=== PATIENT | female | born 1970 | race Caucasian/White ===

== ENCOUNTER 2016-11-28 19:18 | Emergency (ER) | payer BC ==
[2016-11-28] MEDS ORDERED: HYDROCODONE/APAP 10/325 TABLET PO ONE (19:25)
--- NOTE | 2016-11-28 19:31 | Emergency Department Record ---
History of Present Illness - General Chief Complaint: Fall Injury Stated Complaint: FALL Time Seen by Provider: 11/28/16 19:25 Source: Patient, EMS Mode of Arrival: EMS Limitations: No limitations - History of Present Illness Initial Comments: 46 yo female presents to ED with a CC of left lower extremity pain following a slip and fall this evening down approximately 6 steps. Patient reports injury to the left foot and ankle as the lower extremity "folded up underneath me when I fell". Patient denies injury to the head or neck, denies back, chest, or abdominal pain symptoms. Patient denies pain above the left mid-lower extremity on examination. MD Complaint: Fall Onset/Timin -: Minutes(s) Fall From: Down stairs (#) (6) When Fall Occurred: Just prior to arrival Fall Witnessed: Yes, by family Place Fall Occurred: Home Loss of Consciousness: None Prolonged Down Time?: No Symptoms Prior to Fall: None Location - Extremities: Left: Lower Leg Severity: Moderate Quality: Aching - [place] Coma Scale Eye Response: (4) Open spontaneously Motor Response: (6) Obeys commands Verbal Response: (5) Oriented [place] Total: 15 - Related Data Home Medications Medication Instructions Recorded Confirmed Last Taken Amitriptyline HCl [Amitriptyline 5 mg PO DAILY 08/04/15 11/28/16 10/09/15 HCl] Clonazepam [Clonazepam] 20 mg PO DAILY 08/04/15 11/28/16 10/09/15 Hydroxychloroquine Sulfate 200 mg PO BID 08/04/15 11/28/16 10/09/15 [Plaquenil] Levothyroxine Sodium [Synthroid] 150 mcg PO DAILY 08/04/15 11/28/16 10/09/15 Bupropion HCl [Wellbutrin Xl] 150 mg PO DAILY 11/28/16 11/28/16 Unknown Cyclobenzaprine HCl [Flexeril] 10 mg PO QHS 11/28/16 11/28/16 Unknown Allergies Allergy/AdvReac Type Severity Reaction Status Date / Time loratadine [From Claritin] Allergy Intermediate SWELLING Verified 11/28/16 19:21 OF THE TONGUE meclizine HCl [From Antivert] Allergy Intermediate SWELLING Verified 11/28/16 19 :21 OF THE TONGUE Sulfa (Sulfonamide Allergy Intermediate SWELLING Verified 11/28/16 19:21 Antibiotics) OF THE TONGUE Review of Systems Constitutional: Denies: Chills, Fever, Malaise, Night sweats Eyes: Denies: Eye discharge, Eye pain ENT: Denies: Congestion, Ear pain Respiratory: Denies: Cough, Dyspnea Cardiovascular: Denies: Chest pain, Dyspnea on exertion Endocrine: Denies: Fatigue, Heat or cold intolerance Gastrointestinal: Denies: Abdominal pain, Nausea, Vomiting Genitourinary: Denies: Dysuria, Frequency Musculoskeletal: Reports: Arthralgia. Denies: Back pain, Gout, Joint swelling Skin: Denies: Bruising, Change in color Neurological: Denies: Abnormal gait, Confusion, Headache, Seizure Psychiatric: Denies: Anxiety Hematological/Lymphatic: Denies: Anemia, Blood Clots Past Medical History - SOCIAL HISTORY Smoking Status: Never smoker - RESPIRATORY Hx Respiratory Disorders: No - CARDIOVASCULAR Hx Cardio Disorders: No - NEURO Hx Neuro Disorders: No Comment:: lupus - GI Hx GI Disorders: No - Hx Genitourinary Disorders: No - ENDOCRINE Hx Endocrine Disorders: Yes Hx Thyroid Disease: Yes (hypothyroidism) - MUSCULOSKELETAL Hx Musculoskeletal Disorders: No - PSYCH Hx Psych Problems: No - HEMATOLOGY/ONCOLOGY Hx Hematology/Oncology Disorders: Yes Hx Anemia: Yes (iron deficient) Family Medical History Hx Dementia: Mother Hx Heart Disease: Father Physical Exam - General General Appearance: Alert, Oriented x3, Cooperative, Moderate distress Limitations: No limitations - Head Head exam: Atraumatic, Normocephalic, Normal inspection Head exam detail: negative: Abrasion, Contusion, Mccoy's sign, General tenderness, Hematoma, Laceration - Eye Eye exam: Normal appearance. negative: Conjunctival injection, Periorbital swelling, Periorbital tenderness, Scleral icterus - ENT Ear exam: negative: Auricular hematoma, Auricular trauma Nasal Exam: negative: Active bleeding, Discharge, Dried blood, Foreign body Mouth exam: negative: Drooling, Laceration, Muffled voice, Tongue elevation - Neck Neck exam: Normal inspection. negative: Meningismus, Tenderness - Respiratory Respiratory exam: Normal lung sounds bilaterally. negative: Rales, Respiratory distress, Rhonchi, Stridor - Cardiovascular Cardiovascular Exam: Regular rate, Normal rhythm, Normal heart sounds - GI/Abdominal GI/Abdominal exam: Soft. negative: Rebound, Rigid, Tenderness - Rectal Rectal exam: Deferred - exam: Deferred - Extremities Extremities exam: Tenderness, Other (STS to the left lateral ankle, pain with palpation of the area, strong DPP on examination, compartments of the lower extremity are soft on examination.). negative: Calf tenderness, Pedal edema - Back Back exam: Denies: CVA tenderness (R), CVA tenderness (L) - Neurological Neurological exam: Alert, Oriented X3. negative: Motor sensory deficit - Psychiatric Psychiatric exam: Normal affect, Normal mood - Skin Skin exam: Normal color. negative: Abrasion Type of lesion: negative: abrasion Course - Reevaluation(s) Reevaluation #1: 11/28/16 20:47 Left ankle: No acute fracture Left foot: No acute fracture identified Patient was updated on all results, reports that her pain symptoms are greatly improved. Will place in air splint and crutches for ankle support with instructions for symptomatic care at home. Patient appears stable for discharge at this time. Disposition Disposition: Discharge Clinical Impression: Contusion of left ankle or foot Disposition: Home, Self-Care Condition: (2) Stable Instructions: Foot Contusion (ED) Additional Instructions: Return to ED if your symptoms worsen or if you have any concerns. Ice, Ibuprofen as needed for your ankle pain symptoms. Airsplint and crutches as directed. Follow-up with your family doctor in 3-5 days as directed. Forms: Patient Portal Access Time of Disposition: 20:48
--- NOTE | 2016-12-01 15:03 | RADIOLOGY REPORT ---
EXAM: ANKLE LEFT 3 VIEWS HISTORY: PATIENT FELL 30 MINUTES AGO GOING DOWN STAIRS, TRIPPED OVER A TOY DOG AND SLID DOWN THE LAST SIX STEPS WITH LEFT LOWER LEG AND ANKLE PAIN. TECHNIQUE: Three views, left ankle. COMPARISON: None. ENCOUNTER: Initial. FINDINGS: On the lateral view, there is a small calcification just dorsal to the distal end of the talus. This is probably chronic in nature and could even be some vascular calcification. No definite acute fracture or dislocation of the ankle identified. Mild soft tissue swelling fairly diffusely about the ankle. Tiny spurs about the ankle. More prominent spurs are seen involving the calcaneus posteriorly and along the plantar surface. IMPRESSION: 1. SOME MILD SPURRING AT THE ANKLE AND MORE PROMINENT SPURS INVOLVING THE CALCANEUS. 2. MILD SOFT TISSUE SWELLING AT THE ANKLE. 3. NO DEFINITE ACUTE FRACTURE SEEN. HOWEVER, IF SYMPTOMS PERSIST, FOLLOW-UP STUDY IN A WEEK OR SO WOULD BE SUGGESTED TO EXCLUDE A CURRENTLY RADIOGRAPHICALLY OCCULT FRACTURE. JOB NUMBER: [id number] MTDD
--- NOTE | 2016-12-01 15:10 | RADIOLOGY REPORT ---
EXAM: FOOT, LEFT 3 VIEWS HISTORY: PATIENT FELL ABOUT 30 MINUTES AGO GOING DOWN STAIRS WITH PAIN IN THE LEFT LOWER LEG AND ANKLE. TECHNIQUE: Three views, left foot. COMPARISON: No prior left foot series. ENCOUNTER: Initial. FINDINGS: There are moderate-sized calcaneal spurs both posterior and along the plantar surface. Small calcification just dorsal to the distal end of the talus on the lateral view appears relatively chronic and may be vascular. No definite acute fracture of the left foot identified. No dislocation seen. IMPRESSION: NO DEFINITE FRACTURE OF THE LEFT FOOT IDENTIFIED. SOME CALCANEAL SPURS. SMALL CHRONIC-APPEARING CALCIFICATION JUST DORSAL TO THE DISTAL TALUS. JOB NUMBER: [id number] MTDD
== END 2016-11-28 21:01 | disposition home or self-care (01) ==
LOC: ER 19:18
DX: S90.32XA Contusion of left foot, initial encounter (principal); S90.02XA Contusion of left ankle, initial encounter; W10.9XXA Fall (on) (from) unspecified stairs and steps, initial encounter; Y92.009 Unspecified place in unspecified non-institutional (private) residence as the place of occurrence of the external cause
CPT/HCPCS: 99283; 99284

== ENCOUNTER 2017-08-28 17:01 | Emergency (ER) | payer BC ==
--- NOTE | 2017-08-28 17:19 | Emergency Department Record ---
History of Present Illness - General Chief complaint: Flu Like Symptoms Stated complaint: COUGH,VOMITING,GURGLE IN CHEST,HEADACHE Time Seen by Provider: 08/28/17 17:18 Source: Patient Mode of Arrival: Ambulatory Limitations: No limitations - History of Present Illness Initial comments: The patient is here due to not feeling well for about a week. She was seen in the 5 days ago and was diagnosed with bronchitis. She has been having a bad cough, RODRIGUEZ, low grade fever, body aches, and fatigue. She was placed on Doxycycline and has not felt better. She also has not had a flu shot. MD Complaint: Generalized weakness Onset/Timin -: Days(s) Severity: Moderate - [place] Coma Scale Eye Response: (4) Open spontaneously Motor Response: (6) Obeys commands Verbal Response: (5) Oriented [place] Total: 15 - Related Data Previous Rx's Medication Instructions Recorded Albuterol Sulfate [Proair Hfa] 2 puff IH QID PRN #1 inhaler 08/28/17 Benzonatate [Tessalon Perle] 100 mg PO TID #15 capsule 08/28/17 Allergies Allergy/AdvReac Type Severity Reaction Status Date / Time fentanyl Allergy Intermediate facial/tongue Verified 08/28/17 17:19 swelling loratadine [From Claritin] Allergy Intermediate SWELLING Verified 08/28/17 17:19 OF THE TONGUE meclizine HCl [From Antivert] Allergy Intermediate SWELLING Verified 08/28/17 17 :19 OF THE TONGUE Sulfa (Sulfonamide Allergy Intermediate SWELLING Verified 08/28/17 17:19 Antibiotics) OF THE TONGUE Travel Screening - Travel/Exposure Within Last 30 Days Have you traveled within the last 30 days?: No - Travel/Exposure Within Last Year Have you traveled outside the [place] in the last year?: No - Additonal Travel Details Have you been exposed to anyone with a communicable illness?: No - Travel Symptoms Symptom Screening: None Review of Systems Constitutional: Reports: Chills, Malaise. Denies: Fever Eyes: Denies: Eye discharge ENT: Reports: Congestion Respiratory: Reports: Cough. Denies: Dyspnea Past Medical History - SOCIAL HISTORY Smoking Status: Never smoker Alcohol Use: Occasional Drug Use: None - RESPIRATORY Hx Respiratory Disorders: No - CARDIOVASCULAR Hx Cardio Disorders: No - NEURO Hx Neuro Disorders: No Comment:: lupus - GI Hx GI Disorders: No - Hx Genitourinary Disorders: No - ENDOCRINE Hx Endocrine Disorders: Yes Hx Thyroid Disease: Yes (hypothyroidism) - MUSCULOSKELETAL Hx Musculoskeletal Disorders: No - PSYCH Hx Psych Problems: No - HEMATOLOGY/ONCOLOGY Hx Hematology/Oncology Disorders: Yes Hx Anemia: Yes (iron deficient) Comment:: lupus Family Medical History Any Significant Family History?: Yes Hx Dementia: Mother Hx Heart Disease: Father Physical Exam - General General Appearance: Alert, Oriented x3, Cooperative, No acute distress - Head Head exam: Atraumatic, Normocephalic, Normal inspection - Eye Eye exam: Normal appearance, PERRL, EOMI - ENT Throat exam: Normal inspection. negative: Tonsillar erythema, Tonsillar exudate - Neck Neck exam: Normal inspection, Full ROM. negative: Lymphadenopathy, Tenderness - Respiratory Respiratory exam: Normal lung sounds bilaterally. negative: Rales, Respiratory distress, Rhonchi, Stridor, Wheezes - Cardiovascular Cardiovascular Exam: Regular rate, Normal rhythm, Normal heart sounds - GI/Abdominal GI/Abdominal exam: Soft, Normal bowel sounds. negative: Rebound, Rigid, Tenderness - Extremities Extremities exam: Normal inspection, Full ROM, Normal capillary refill. negative: Tenderness - Neurological Neurological exam: Alert. negative: Motor sensory deficit Course Vital Signs 08/28/17 17:08 Temperature 98.2 F Pulse Rate 85 Respiratory 18 Rate Blood Pressure 132/84 Pulse Ox 94 L - Reevaluation(s) Reevaluation #1: I explained to the patient that she most likely has Influenza and that is why she is not feeling any better. We will obtain a CXR to R/O pneumonia and will place the patient on new cough medicines. 08/28/17 17:32 Reevaluation #2: The patient is doing very well. She has had no nausea or vomiting or MARII. I did explain to her that the CXR is neg. She is to use Albuterol at home with Tessalon and see her PCP in 2-3 days for recheck. 08/28/17 18:09 Medical Decision Making - Data Complexity MDM Data: X-Ray Ordered and/or Reviewed - Radiology Data Radiology results: Report reviewed (CXR: Neg per Rad.) Disposition Disposition: Discharge Clinical Impression: URI, acute Disposition: Home, Self-Care Condition: (2) Stable Instructions: Upper Respiratory Infection (ED) Additional Instructions: Please continue your antibiotics and add the Albuterol and Tessalon. Please see your PCP for recheck in 2-3 days if not better. Return to the ER for any worsening cough, fever, vomiting or shortness of breath. Prescriptions: Albuterol Sulfate [Proair Hfa] 2 puff IH QID PRN #1 inhaler PRN Reason: Cough And Difficulty Breathing Benzonatate [Tessalon Perle] 100 mg PO TID #15 capsule Forms: Patient Portal Access Time of Disposition: 18:11 Quality - Quality Measures Quality Measures: N/A - Blood Pressure Screening View Details: Yes Does Patient Have Any of the Following: No Blood Pressure Classification: Pre-Hypertensive BP Reading Systolic Measurement: 132 Diastolic Measurement: 84 Screening for High Blood Pressure: < Pre-Hypertensive BP, F/U Documented > [ G8950] Pre-Hypertensive Follow-up Interventions: Referral to alternative/primary care provider.
[2017-08-28] MEDS ORDERED: ACETAMINOPHEN 325 MG TAB PO ONE (17:26)
--- NOTE | 2017-08-29 13:27 | RADIOLOGY REPORT ---
EXAM: CHEST, TWO VIEWS HISTORY: COUGH. TECHNIQUE: Frontal and lateral views of the chest were obtained. Comparison: None. FINDINGS: The heart size is normal. The lungs are clear. No pneumothorax. Surgical clips in the upper abdomen. IMPRESSION: NO ACUTE CARDIOPULMONARY PROCESS. JOB NUMBER: [id number] MTDD
== END 2017-08-28 18:25 | disposition home or self-care (01) ==
LOC: ER 17:01
DX: J06.9 Acute upper respiratory infection, unspecified (principal); R53.1 Weakness; R51 Headache
CPT/HCPCS: 71046; 99283

== ENCOUNTER 2017-09-15 14:57 | Emergency (ER) | payer BC ==
[2017-09-15] MEDS ORDERED: ALBUTEROL SULFATE (0.083%) 2.5 MG/3 ML NEB INH ONE (15:26)
--- NOTE | 2017-09-15 15:33 | Emergency Department Record ---
History of Present Illness - General Chief Complaint: Shortness of breath Stated Complaint: FLU,HARD TO BREATH Time Seen by Provider: 09/15/17 15:16 Source: Patient Mode of Arrival: Ambulatory Limitations: No limitations - History of Present Illness Initial Comments: The patient is here due to a cough and congestion for about a month. She was seen in the about 3 weeks ago and started on Doxycycline. The patient states she did not get much better and has continued to cough. Today she was coughing so hard she had a hard time catching her breath and became lightheaded. Presently she is doing a lot better and denies any MARII, SOB, CP or back pain. MD Complaint: Cough, Shortness of breath Onset/Timin -: Month(s) Severity: Mild - Related Data Previous Rx's Medication Instructions Recorded Albuterol Sulfate [Proair Hfa] 2 puff IH QID PRN #1 inhaler 08/28/17 Albuterol Sulfate [Proair Hfa] 2 puff IH QID PRN #1 inhaler 09/15/17 Azithromycin [Zithromax] 250 mg PO ASDIR #6 tab 09/15/17 Allergies Allergy/AdvReac Type Severity Reaction Status Date / Time fentanyl Allergy Intermediate facial/tongue Verified 09/15/17 15:00 swelling loratadine [From Claritin] Allergy Intermediate SWELLING Verified 09/15/17 15:00 OF THE TONGUE meclizine HCl [From Antivert] Allergy Intermediate SWELLING Verified 09/15/17 15 :00 OF THE TONGUE Sulfa (Sulfonamide Allergy Intermediate SWELLING Verified 09/15/17 15:00 Antibiotics) OF THE TONGUE Travel Screening - Travel/Exposure Within Last 30 Days Have you traveled within the last 30 days?: No - Travel/Exposure Within Last Year Have you traveled outside the [place] in the last year?: No - Additonal Travel Details Have you been exposed to anyone with a communicable illness?: No Review of Systems Constitutional: Reports: Malaise. Denies: Chills, Fever Eyes: Denies: Eye discharge ENT: Reports: Congestion Respiratory: Reports: Cough, Dyspnea. Denies: Hemoptysis, Stridor, Wheezes Cardiovascular: Denies: Arrhythmia, Chest pain Past Medical History - SOCIAL HISTORY Smoking Status: Never smoker Alcohol Use: Occasional Drug Use: None - RESPIRATORY Hx Respiratory Disorders: No - CARDIOVASCULAR Hx Cardio Disorders: No - NEURO Hx Neuro Disorders: No Comment:: lupus - GI Hx GI Disorders: No - Hx Genitourinary Disorders: No - ENDOCRINE Hx Endocrine Disorders: Yes Hx Thyroid Disease: Yes (hypothyroidism) - MUSCULOSKELETAL Hx Musculoskeletal Disorders: No - PSYCH Hx Psych Problems: No - HEMATOLOGY/ONCOLOGY Hx Hematology/Oncology Disorders: Yes Hx Anemia: Yes (iron deficient) Comment:: lupus Family Medical History Any Significant Family History?: Yes Hx Dementia: Mother Hx Heart Disease: Father Physical Exam - General General Appearance: Alert, Oriented x3, Cooperative, No acute distress - Head Head exam: Atraumatic, Normocephalic, Normal inspection - Eye Eye exam: Normal appearance, PERRL - ENT ENT exam: Normal exam, Mucous membranes moist, Normal external ear exam, Normal orophraynx, TM's normal bilaterally Throat exam: Normal inspection. negative: Tonsillar erythema, Tonsillar exudate - Neck Neck exam: Normal inspection, Full ROM. negative: Lymphadenopathy, Meningismus , Tenderness - Respiratory Respiratory exam: Rhonchi (There are rhonchi on exam bilaterally mildly. There are no wheezes or rales.). negative: Normal lung sounds bilaterally, Accessory muscle use, Decreased breath sounds, Prolonged expiratory, Respiratory distress , Stridor, Wheezes - Cardiovascular Cardiovascular Exam: Regular rate, Normal rhythm, Normal heart sounds - GI/Abdominal GI/Abdominal exam: Soft, Normal bowel sounds. negative: Tenderness - Extremities Extremities exam: Normal inspection, Full ROM, Normal capillary refill. negative: Tenderness - Neurological Neurological exam: Alert, Normal gait. negative: Abnormal gait, Motor sensory deficit Course Vital Signs 09/15/17 14:59 Temperature 97.2 F L Pulse Rate 77 Respiratory 16 Rate Blood Pressure 134/99 Pulse Ox 95 - Reevaluation(s) Reevaluation #1: The patient is doing a lot better at this time. She states her SOB has resolved with the breathing tx and she is able to take deep breaths without coughing. On exam her lungs are clear with no wheezes or rhonchi. 09/15/17 16:15 Reevaluation #2: The patient is doing a lot better at this time. She is able to breath deeply with no coughing and denies any CP or SOB. 09/15/17 16:45 Medical Decision Making - Data Complexity MDM Data: Labs Ordered and/or Reviewed, X-Ray Ordered and/or Reviewed - Lab Data Result diagrams: 09/15/17 15:37 09/15/17 15:37 - Radiology Data Radiology results: Report reviewed (CXR: Neg.) Disposition Disposition: Discharge Clinical Impression: URI, acute Disposition: Home, Self-Care Condition: (2) Stable Instructions: Upper Respiratory Infection (ED) Additional Instructions: Please continue your inhaller and start the ZPak as directed. Please see your PCP next week for recheck. Return to the ER for any worsening symptoms. Prescriptions: Albuterol Sulfate [Proair Hfa] 2 puff IH QID PRN #1 inhaler PRN Reason: Cough And Difficulty Breathing Azithromycin [Zithromax] 250 mg PO ASDIR #6 tab Forms: Patient Portal Access Time of Disposition: 16:45 Quality - Quality Measures Quality Measures: N/A - Blood Pressure Screening View Details: Yes Does Patient Have Any of the Following: No Blood Pressure Classification: Hypertensive Reading Systolic Measurement: 134 Diastolic Measurement: 99 Screening for High Blood Pressure: < First Hypertensive BP, F/U Documented > [ G8950] First Hypertensive Follow-up Interventions: Referral to alternative/primary care provider.
[2017-09-15 15:45] LABS: BASO % 0.7 % (0-6); EOS % 6.2 % (0-6); HEMATOCRIT 39.7 % (35.0-47.0); MEAN CELL VOLUME 87.1 fl (81-97); MEAN CORPUSCULAR HEMOGLOBIN 28.5 pg (27-33); MEAN CORPUSCULAR HGB CONC 32.7 g/dl (32-36); MEAN PLATELET VOLUME 9.3 fl (7.4-10.4); MONO % 12.1 % (0-9); PLATELET COUNT 175 K/uL (130-400); RED BLOOD COUNT 4.56 M/uL (3.80-5.40); RED CELL DISTRIBUTION WIDTH 12.7 % (11.5-14.5); WHITE BLOOD COUNT W/O DIFF 3.1 K/uL (4.2-12.2)
[2017-09-15 16:02] LABS: ALB/GLOB RATIO 1.2 (1.1-1.8); ALBUMIN 4.1 g/dL (4.0-5.0); ALKALINE PHOSPHATASE 115 U/L (35-104); ALT/SGPT 15 U/L (<33); AST/SGOT 20 U/L (10.0-35.0); BLOOD UREA NITROGEN 13 mg/dL (6-20); CREATININE 0.6 mg/dL (0.5-0.9); EST GLOMERULAR FILTRATION RATE > 60 mL/min; GLUCOSE,RANDOM 88 mg/dL (74-109); TOTAL PROTEIN 7.6 g/dL (6.6-8.7)
[2017-09-15] MEDS ORDERED: METHYLPREDNISOLONE 80MG/VIAL IM ONE (16:15)
--- NOTE | 2017-09-16 14:53 | RADIOLOGY REPORT ---
DATE: 09/15/2017. EXAM: TWO-VIEW, CHEST. HISTORY: Difficulty breathing. TECHNIQUE: Frontal and lateral views of the chest were performed. FINDINGS: Heart size is normal. The lungs silva are clear. The osseous structures are normal. IMPRESSION: NEGATIVE CHEST EXAMINATION. JOB NUMBER: [id number] MTDD
== END 2017-09-15 16:50 | disposition home or self-care (01) ==
LOC: ER 14:57
DX: J06.9 Acute upper respiratory infection, unspecified (principal); R06.02 Shortness of breath
CPT/HCPCS: 71046; 80053; 85025; 94640; 96372; 99283; 99284; J1040; J7613